=== PATIENT | male | born 1995 ===

== ENCOUNTER 2025-07-29 12:32 | Emergency (ER) | payer SELFPAY ==
--- NOTE | ~2025-07-29 | US_ITS ---
CLINICAL HISTORY: RUQ epigatric pain after eating --- Additional Notes or Special Instructions: look at GB, liver, pancreas, ducts US abdomen limited Comparison: None provided Findings: The visualized pancreas is normal. The liver is normal in echotexture. Hepatomegaly, 18.2 cm. There is no intrahepatic bile duct dilatation. The common duct is 2 mm in diameter. The gallbladder demonstrates a small gravity dependent meniscus with a hypoechoic material. There is no sonographic Parada sign. No ascites. IMPRESSION: Biliary sludge. This document has been electronically signed by: Theo Urrutia MD on 07/29/2025 15:35:57
[2025-07-29 12:35] VITALS: BP 111/63; PULSE 72; RESP 18; TEMP 36.2; O2SAT 98; BMI 21.1
--- NOTE | 2025-07-29 12:51 | ED_ITS ---
HPI - General Adult General Chief complaint: Abdominal Pain Stated complaint: N/V/D Time Seen by Provider: 07/29/25 13:43 Source: patient Mode of arrival: ambulatory Limitations: no limitations History of Present Illness ED Provider: ELIAZAR GREEN PA-C HPI narrative: 30 yo M presents to ED today for evaluation of epigastric abdominal pain, nausea, vomiting, and diarrhea x24 hours. Reports epigatric pain began after eating pizza yesterday, continuing into today. Pain is currently an 8/10. No radiation. He tried Pepcid at home without improvement. Reports associated nausea, vomiting and diarrhea. No blood noted to emesis or stool. Denies fever, chills. Denies history of abdominal surgeries. Denies ETOH use. Reports was recently seen in our ED and diagnosed with a viral GI illness. Related Data Previous Rx's ?Medication ?Instructions ?Recorded naproxen 500 mg tablet 500 mg PO Q12H PRN pain (sca le 07/29/25 score 1-3) #20 tabs ondansetron 4 mg disintegrating 4 mg PO Q12H PRN nause a and 07/29/25 tablet vomiting 5 days #10 tabs Allergies Allergy/AdvReac Type Severity Reaction Status Date / Time No Known Allergies Allergy Verified 07/29/25 12:36 Review of Systems 2 Review of Systems: Yes all other systems are reviewed and are negative PMFSH Past Medical History Attestation statement: The following information was validated with the patient. Source: old records reviewed and nursing notes reviewed Physical Exam ED Vital Signs: Vital Signs - 24 hr 07/29/25 12:35 07/29/25 14:04 07/29/25 16:22 Temperature 97.2 F 98.1 F 98.1 F Pulse Rate 72 57 57 Respiratory Rate 18 16 16 Blood Pressure 111/63 102/61 102/61 Pulse Oximetry 98 97 97 Oxygen Delivery Method Room Air Room Air Room Air BMI result Body Mass Index 21.1 Vital signs stable, afebrile General: Well appearing, in no acute distress. Skin: Warm, dry, intact. No rashes or lesions. Head: Normocephalic, atraumatic. EENT: Hearing is intact b/l. Conjunctiva clear. PERRLA. EOM intact. Moist mucous membranes.? Cardiac: Chest wall symmetric. RRR Lungs: Normal respiratory effort without accessory muscle use. CTA bilaterally Abdomen: Soft, nondistended, nontender to palpation, no rebound or guarding. Negative Parada's sign. No McBurney point tenderness. No CVAT bilaterally. Active bowel sounds throughout. Ext: Upper and lower extremities atraumatic, without tenderness, deformity, swelling or erythema Neuro: AOx3. Normal speech. Ambulating with steady gait. Course Course Course Narrative: Rapid medical examination performed in triage by Louise Reyes PA-C. Patient is a 30 year old assigned male at presenting to the emergency department with epigastric pain. Detailed physical exam and review of systems are deferred to the senior technical architect. EKG and labs ordered. Patient placed back in the waiting room pending room availability and results. Reevaluation(s) Reevaluation #1: 8703 -- CBC showing slight leukopenia to 3.8, no priors to compare to. H&H 14.8/41.4. Chemistry without acute electrolyte abnormality requiring intervention. BUN mildly elevated to 20 with normal creatinine. Will rehydrate with 1 L of fluids. Liver function WNL. Troponin undetectable. Lipase WNL, pancreatitis unlikely. > given pain onset after eating a greasy meal, will obtain right upper quadrant ultrasound to look at the gallbladder. > he has been treated with IV fluids, Zofran and Toradol. Reports improvement in pain after receiving Toradol. Will continue to monitor. 1615 -- Patient reports significant improvement in pain with medications. Well- appearing. tolerating PO intake. Right upper quadrant ultrasound showing relatively small amount of biliary sludge and gallbladder. Negative sonographic Parada's sign. Common bile duct measuring 2 mm in diameter, no intrahepatic bile duct dilation. Scan is otherwise unremarkable. > discussed results with patient. he has remained stable and symptoms appear to be under control. used shared decision making to determine disposition home. educated on dietary changes. referral to general surgery provided as he will likely require HIDA scan. Patient has remained stable throughout ED visit today. Discussed worrisome signs and symptoms and when to return to the ED. All questions answered at this time. Patient is agreeable with disposition and stable for discharge. Medications Administered Discontinued Medications Generic Name Dose Route Start Last Admin Trade Name Freq PRN Reason Stop Dose Admin Sodium Chloride 1,000 mls @ 999 mls/hr 07/29/25 14:15 07/29/25 15:43 Ns IV 07/29/25 15:15 Infused .Q1H1M SHAYNE Infusion Ketorolac Tromethamine 15 mg 07/29/25 14:01 07/29/25 14:29 Ketorolac Tromethamine 15 Mg/Ml Vial IVPUSH 07/29/25 14:02 15 mg ONCE ONE Administration Ondansetron HCl 4 mg 07/29/25 14:01 07/29/25 14:29 Ondansetron Hcl 4 Mg/2 Ml Vial IVPUSH 07/29/25 14:02 4 mg ONCE ONE Administration Medical Decision Making Medical Decision Making [facility] Narrative: 30 yo M presents to ED today for evaluation of epigastric abdominal pain, nausea, vomiting, and diarrhea x24 hours. Vital signs stable. Afebrile. He is generally well-appearing and in no acute distress. Abdominal exam benign. Differential diagnosis includes biliary colic, renal colic, nephrolithiasis, gastroenteritis, gastritis, PUD. Abdominal exam without peritoneal signs. No evidence of acute abdomen at this time. Well appearing. Moderate suspicion for acute hepatobiliary disease (including acute cholecystitis). Less likely to represent acute pancreatitis, perforated ulcer/ GI bleed, acute infectious processes (pneumonia, hepatitis, pyelonephritis), atypical appendicitis, vascular catastrophe, bowel obstruction or viscus perforation. Presentation not consistent with other acute, emergent causes of abdominal pain at this time. Plan: labs, COVID/flu testing, UA, pain control, RUQ US, serial reassessment Differential Diagnosis Differential Diagnoses: The differential diagnosis associated with the presentation includes as above. Admission/Observation not indicated. Lab Data [facility] Lab Attestation statement: I reviewed the patient's lab results. as above. 07/29/25 12:52 07/29/25 12:52 Labs: Lab Results 07/29/25 07/29/25 Range/Units 12:52 14:09 WBC 3.8 L (4.8-10.8) X10*3/uL RBC 4.57 L (4.60-5.80) X10*6/uL Hgb 14.8 (14.0-18.0) g/dl Hct 41.4 L (42.0-52.0) % MCV 90.6 (80.0-98.0) fL MCH 32.4 (27.0-33.0) pg MCHC 35.7 (31.0-36.0) g/dl RDW 12.2 (11.0-16.0) % Plt Count 205 (160-400) X10*3/uL MPV 9.9 (9.4-12.4) fL Immature Gran % (Auto) 0.3 (0.0-0.4) % Neut % (Auto) 44.2 L (45-73) % Lymph % (Auto) 44.3 H (20-40) % [place] % (Auto) 8.8 (2-11) % Eos % (Auto) 2.1 (0-4) % Baso % (Auto) 0.3 (0-2) % Lymph # (Auto) 1.7 (1.2-4.9) X10*3/uL [place] # (Auto) 0.3 (0.1-1.2) X10*3/uL Eos # (Auto) 0.1 (0.0-0.4) X10*3/uL Baso # (Auto) 0.0 (0.0-0.2) X10*3/uL Abs Immat Gran (auto) 0.01 (0.00-0.03) X10*3/uL Absolute Neuts (auto) 1.7 L (2.0-8.3) x10*3/uL Absolute Nucleated RBC 0.000 (0.0-0.012) X10*3/uL Nucleated RBC % (auto) 0.0 (0.0-0.2) /100WBC Sodium 141 (135-145) mmol/L Potassium 4.1 (3.3-5.1) mmol/L Chloride 106 (96-108) mmol/L Carbon Dioxide 28 (22-29) mmol/L Anion Gap 11 L (12-20) BUN 20 H (9-16) mg/dL Creatinine 0.82 (0.5-1.4) mg/dL Estim Creat Clear Calc 127.6 Estimated GFR > 60 Random Glucose 96 (60-115) mg/dL Calcium 9.0 (8.4-10.2) mg/dL Total Bilirubin 0.5 (0.0-1.0) mg/dL AST 22 (5-37) U/L ALT 15 (0-40) U/L Alkaline Phosphatase 80 (39-117) U/L Troponin I High Sens < 2.7 (<3.5-35.0) ng/L Total Protein 7.2 (6.5-8.0) g/dL Albumin 4.5 (3.5-5.0) g/dL Lipase 14 (8-78) U/L COVID-19 (MOE) Negative (Negative) COVID-19 Clin Com See Note Influenza Type A (MARTIN) Negative (Negative) Influenza Type B (MARTIN) Negative (Negative) Influenza A & B Note See Note Independent Interpretation I performed an independent interpretation of an: Ultrasound Interpretation: RUQ US showing biliary sludge, no stones Radiology Impression Discussion of test interpretation with radiology: I have reviewed the radiologist's reading. Radiologist Impression: Reason for Exam: RUQ/ epigatric pain after eating CLINICAL HISTORY: RUQ epigatric pain after eating --- Additional Notes or Special Instructions: look at GB, liver, pancreas, ducts US abdomen limited Comparison: None provided Findings: The visualized pancreas is normal. The liver is normal in echotexture. Hepatomegaly, 18.2 cm. There is no intrahepatic bile duct dilatation. The common duct is 2 mm in diameter. The gallbladder demonstrates a small gravity dependent meniscus with a hypoechoic material. There is no sonographic Parada sign. No ascites. IMPRESSION: Biliary sludge. This document has been electronically signed by: Theo Urrutia MD on 07/29/2025 15:35:57 External Record Review External record reviewed: Inpatient record Prescription Management I considered prescription management with: Pain Medication and Other (zofran) Social Determinants Patient?s care significantly limited by Social Determinants of Health including: Other Social Determinant of Health Critical Care Time Critical Care Time Critical Care Time: No Discharge Plan Discharge Clinical Impression: Biliary sludge Patient Disposition: Home, Self-Care Instructions: HIDA Scan (DC) Additional Instructions: Your blood work today is reassuring. The ultrasound of your upper abdomen shows biliary sludge in your gallbladder. Your symptoms have been well controlled while in the ED. I suggest you follow up with your PCP as well as general surgeon as you will likely require a HIDA scan. In the meantime, please avoid triggering foods such as greasy/fatty foods as this can worsen your pain. I am sending naproxen to your pharmacy for you to take as needed for pain control. Zofran is an anti-nausea medication that has been sent to your pharmacy. Return with any new or worsening symptoms. In the case of an emergency call 911. Prescriptions: New ondansetron 4 mg tablet,disintegrating 4 mg PO Q12H PRN (Reason: nausea and vomiting) 5 Days Qty: 10 0RF naproxen 500 mg tablet 500 mg PO Q12H PRN (Reason: pain (scale score 1-3)) Qty: 20 0RF Referrals: [facility] General Surgeons [Provider Group, General Surgery] Referral Note: biliary sludge Physician,None [Primary Care Provider, Medical] Stand Alone Forms: Work/School Release Interventions: ED Discharge Assessment Last Done: 07/29/25 16:22 Discharge Date/Time: 07/29/25 16:33 Print Language: Irish
--- NOTE | 2025-07-29 12:52 | ECG_ITS ---
Test Reason : EPIGASRTIC PAIN Blood Pressure : */* mmHG Vent. Rate : 59 BPM Atrial Rate : 59 BPM P-R Int : 150 ms QRS Dur : 86 ms QT Int : 392 ms P-R-T Axes : 65 60 54 degrees QTcB Int : 388 ms Sinus bradycardia Otherwise normal ECG No previous ECGs available Referred By: Louise Reyes Electronically Signed By: FIDEL RODRIGUEZ
[2025-07-29 12:58] LABS: MANUAL DIFF FLAG NO
[2025-07-29 12:59] LABS: Hematocrit 41.4 % (42.0-52.0); Hemoglobin 14.8 g/dl (14.0-18.0); Imm Gran Abs Auto 0.01 X10*3/uL (0.00-0.03); Imm Gran Pct Auto 0.3 % (0.0-0.4); Lymphocytes Absolute Auto 1.7 X10*3/uL (1.2-4.9); Mean Corpuscular HGB Conc 35.7 g/dl (31.0-36.0); Mean Corpuscular Hemoglobin 32.4 pg (27.0-33.0); Mean Corpuscular Volume 90.6 fL (80.0-98.0); NRBC Abs Auto 0.000 X10*3/uL (0.0-0.012); NRBC Pct Auto 0.0 /100WBC (0.0-0.2); Platelet Count 205 X10*3/uL (160-400); Red Blood Count 4.57 X10*6/uL (4.60-5.80); White Blood Count 3.8 X10*3/uL (4.8-10.8)
[2025-07-29 13:15] LABS: Alanine Aminotransferase 15 U/L (0-40); Albumin Level 4.5 g/dL (3.5-5.0); Alkaline Phosphatase 80 U/L (39-117); Anion Gap 11 (12-20); Aspartate Amino Transferase 22 U/L (5-37); Blood Urea Nitrogen 20 mg/dL (9-16); Calcium 9.0 mg/dL (8.4-10.2); Carbon Dioxide 28 mmol/L (22-29); Chloride 106 mmol/L (96-108); Creatinine Clr Calc Pharmacy 127.6; Estimated Glomerular Filt Rate > 60; Lipase 14 U/L (8-78); Potassium 4.1 mmol/L (3.3-5.1); Sodium 141 mmol/L (135-145); Total Protein 7.2 g/dL (6.5-8.0)
[2025-07-29 13:43] LABS: Troponin-I High Sensitivity < 2.7 ng/L (<3.5-35.0)
--- OUTSIDE RECORDS SUMMARY | 2025-07-29 13:50 | XMS_ITS | Clinical Summary ---
Author Organization [facility] Address [address] [place] [address] Care Team Providers Care Manager Global Communications Name Role Phone Pcp, No Primary Care Provider Unavailabl e Allergies No known active allergies Medications acetaminophen (TYLENOL) 500 MG tablet Take 1 tablet (500 mg total) by mouth 4 times daily (every 6 hours) as needed for mild pain (pain). 20 tablet 4 Active ibuprofen (MOTRIN) 600 MG tablet Take 1 tablet (600 mg total) by mouth 3 (three) times a day as needed for mild pain (pain). 20 tablet 4 Active guaiFENesin (MUCINEX) 600 MG 12 hr tablet Take 2 tablets (1,200 mg total) by mouth 2 (two) times a day. 20 tablet 4 Active ondansetron (ZOFRAN-ODT) 4 MG disintegrating tablet Take 1 tablet (4 mg total) by mouth 3 times daily (every 8 hours) as needed for nausea or vomiting. Place tablet on tongue to dissolve. 10 tablet 4 Active famotidine (PEPCID) 20 MG tablet Take 1 tablet (20 mg total) by mouth 2 (two) times a day. 28 tablet 4 Active dicyclomine (BENTYL) 10 MG capsule Take 1 capsule (10 mg total) by mouth 4 (four) times a day. 20 capsule 4 Active Social History Tobacco Use Types Packs/Day Years Used Date Smoking Tobacco: Never Smokeless Tobacco: Never Tobacco Cessation:Counseling Given: Not Answered Alcohol Use Standard Drinks/Week Comments Never 0 (1 standard drink = 0.6 oz pur e alcohol) Sex and Gender Information Value Date Recorded Sex Assigned at Male 03/14/2024 1:11 AM EDT Legal Sex Male 1:06 AM EDT Gender Identity Male 03/14/2024 1:11 AM EDT Sexual Orientation Heterosexual (straight) 03/14 1:11 AM EDT Last Filed Vital Signs Vital Sign Reading Time Taken Comments Blood Pressure 100/63 04/26/2024 9:53 PM EDT Pulse 70 04/26/2024 9:53 PM EDT Temperature 36.2 C (97.2 F) 04/26/2024 9:53 PM EDT Respiratory Rate 17 04/26/2024 9:53 PM EDT Oxygen Saturation 100% 04/26/2024 9:53 PM EDT Inhaled Oxygen Concentration - - Weight - - Height - - Body Mass Index - - Plan of Treatment Health Maintenance Due Date Last Done Comments Hepatitis C Virus Screening 1995 HIV Screening 02/27/2008 DTaP/Tdap/Td Vaccines (1 - Tdap) 2014 Hepatitis B Vaccines (1 of 3 - 19+ 3-dose series) 2014 HPV Vaccines (1 - 3-dose SCD M series) 2022 Influenza Vaccine 06/15/2025 COVID-19 Vaccine ( - 2023-2 5 season) 2025 Pneumococcal Vaccine: Pediat geronimo (0-5 Years) and At-Risk Patients (6 to 49 Years) Aged Out No longer eligible b ased on patient's age to complete this topic Care Teams Manager Global Communications Relationship Specialty Start Date End Date Pcp, No PCP - General General Medicine 03/14/24
--- OUTSIDE RECORDS SUMMARY | 2025-07-29 13:50 | XMS_ITS | Clinical Summary ---
Author Organization [facility] Address [address] [place] [address] Care Team Providers Care Sociology Professor Name Role Phone Unavailable Primary Care Provider Unavailabl e Social History Tobacco Use Types Packs/Day Years Used Date Smoking Tobacco: Never Assessed Sex and Gender Information Value Date Recorded Sex Assigned at Not on file Legal Sex Male 4:57 PM EDT Gender Identity Not on file Sexual Orientation Not on file Obstetrics History Last Filed Vital Signs Vital Sign Reading Time Taken Comments Blood Pressure - - Pulse - - Temperature - - Respiratory Rate - - Oxygen Saturation - - Inhaled Oxygen Concentration - - Weight 61.2 kg (135 lb) 03/24/2024 8:41 PM EDT Height 180.3 cm (5' 11 ) 03/24/2024 8:41 PM EDT Body Mass Index 18.83 03/24/2024 8:41 PM EDT Plan of Treatment Health Maintenance Due Date Last Done Comments DTaP,Tdap,and Td Vaccines (1 - Tdap) 2014 Hepatitis B Vaccines (1 of 3 - 19+ 3-dose series) 2014 HIV Screening 06/14/2024 Hepatitis C Screening 06/14/2024 Social Influencers of Health Screening 06/14/2024 Depression Screening 11/15/2024 COVID-19 Vaccine ( - 2023-2 5 season) 2025 Influenza Vaccine (#1) 2025 HIB Vaccines Aged Out No longer eligi ble based on patient's age to complete this topic HPV Vaccines Aged Out No longer eligi ble based on patient's age to complete this topic Hepatitis A Vaccines Aged Out No long er eligible based on patient's age to complete this topic IPV Vaccines Aged Out No longer eligi ble based on patient's age to complete this topic MMR Vaccines Aged Out No longer eligi ble based on patient's age to complete this topic Meningococcal ACWY Vaccine Aged Out N o longer eligible based on patient's age to complete this topic Meningococcal B Vaccine Aged Out No l onger eligible based on patient's age to complete this topic Pneumococcal Vaccine: Pediat rics (0 to 5 Years) and At-Risk Patients (6 to 49 Years) Aged Out No longer eligible b ased on patient's age to complete this topic RSV Immunization Patients Un juan manuel 20 months Aged Out No longer eligible b ased on patient's age to complete this topic Varicella Vaccines Aged Out No longer eligible based on patient's age to complete this topic
--- OUTSIDE RECORDS SUMMARY | 2025-07-29 13:50 | XMS_ITS | Clinical Summary ---
Author Organization [facility] Address [address] [place] [address] Care Team Providers Care Meatman Name Role Phone Unavailable Primary Care Provider Unavailabl e Allergies No known active allergies Medications Medication Sig Dispensed Refills Start Date End Date Status ibuprofen 600 MG tablet Take 1 tablet (600 mg total) by mouth every 6 (six) hours as needed for pain. 30 tablet 0 03/20/2024 Active acetaminophen (TYLENOL) 325 MG tablet Take 2 tablets (650 mg total) by mouth every 6 (six) hours as needed for pain. 30 tablet 0 03/20/2024 Active ondansetron (ZOFRAN-ODT) 8 MG disintegrating tablet Take 1 tablet (8 mg total) by mouth every 8 (eight) hours as needed for nausea. 20 tablet 0 03/25/2024 Active lidocaine (Lidoderm) 5 % Place 1 patch onto the skin daily. Remove & Discard patch within 12 hours or as directed by MD 30 patch 0 04/19/2024 Active Active Problems No known active problems Social History Tobacco Use Types Packs/Day Years Used Date Smoking Tobacco: Never Assessed Sex and Gender Information Value Date Recorded Sex Assigned at Male 03/20/2024 9:48 PM EDT Gender Identity Not on file Sexual Orientation Not on file Job Start Date Occupation Industry Not on file Not on file Not on file Last Filed Vital Signs Vital Sign Reading Time Taken Comments Blood Pressure 111/70 04/18/2024 9:09 PM EDT Pulse 91 04/18/2024 9:09 PM EDT Temperature 36.5 C (97.7 F) 04/18/2024 9:09 PM EDT Respiratory Rate 18 04/18/2024 9:09 PM EDT Oxygen Saturation 96% 04/18/2024 9:09 PM EDT Inhaled Oxygen Concentration - - Weight 61.2 kg (135 lb) 03/24/2024 8:41 PM EDT Height 180.3 cm (5' 11 ) 03/24/2024 8:41 PM EDT Body Mass Index 18.83 03/24/2024 8:41 PM EDT Plan of Treatment Health Maintenance Due Date Last Done Comments Hepatitis B Vaccines (1 of 3 - 3-dose series) 1995 Hepatitis C Screening 1995 COVID-19 Vaccine (#1) 1995 Depression Screening 2007 Preventative Health Evaluation 2013 DTap / Tdap / Td (1 - Tdap) 2014 Influenza Vaccine (#1) 2025 Pneumococcal Vaccine Aged Out No long er eligible based on patient's age to complete this topic RSV Ped < 20 months Aged Out No longe r eligible based on patient's age to complete this topic
[2025-07-29 14:04] VITALS: BP 102/61; PULSE 57; RESP 16; TEMP 36.7; O2SAT 97
[2025-07-29 14:46] LABS: IDNOW Serial# 58CA691E
[2025-07-29 14:47] LABS: COVID-19 Test Negative (Negative); IDNOW Serial# 55D5AD1C; Influenza B2 Negative (Negative)
[2025-07-29 16:22] VITALS: BP 102/61; PULSE 57; RESP 16; TEMP 36.7; O2SAT 97
== END 2025-07-29 16:33 | disposition home or self-care (01) ==
PROVIDERS: Physician Assistant Medical; Emergency Provider Emergency Medicine
DX: R11.2 Nausea with vomiting, unspecified (principal); R10.13 Epigastric pain; R00.1 Bradycardia, unspecified; Z79.899 Other long term (current) drug therapy; Z11.52 Encounter for screening for COVID-19; Z03.818 Encounter for observation for suspected exposure to other biological agents ruled out
CPT/HCPCS: 36415; 76705; 80053; 83690; 84484; 85025; 87502; 87635; 93005; 96361; 96374; 96375; 99284; 99285; J1885; J2405

== ENCOUNTER → 2025-07-29 12:52 | Outpatient (BNV) | payer SELFPAY | PROVIDERS: Emergency Provider Emergency Medicine; Visit Provider Internal Medicine | DX: R00.1 Bradycardia, unspecified (principal) | CPT/HCPCS: 93010 ==

== ENCOUNTER → 2025-07-29 14:52 | Outpatient (BNV) | payer SELFPAY | PROVIDERS: Emergency Provider Emergency Medicine; Visit Provider Radiology Diagnostic Radiology | DX: R10.11 Right upper quadrant pain (principal); R10.13 Epigastric pain | CPT/HCPCS: 76705 ==